=== PATIENT | female | born 1990 | race Caucasian/White ===

== ENCOUNTER 2019-08-09 09:24 | Outpatient (CLI) | payer SELFPAY ==
--- NOTE | 2019-08-09 | CT_ITS ---
WS: [id number] CT CHEST ANGIOGRAPHY WITH REFORMATS HISTORY: CHEST PAIN TECHNIQUE: Contiguous axial images are obtained through the chest during arterial injection of intrav enous contrast. Images are reconstructed to evaluate the pulmonary arteries. MIP imaging also reviewe d. All CT scans at [facility] use at least one of these dose optimization techniques: aut omated exposure control; mA and/or kV adjustment per patient size (includes targeted exams where dose is matched to clinical indication); or iterative reconstruction. CONTRAST: Omnipaque 350; 95 mL IV. DLP: 775.33 mGycm COMPARISON: Short of breath with chest pain. Adequate opacification of the pulmonary arteries. There are no filling defects or pulmonary embolism identified through the segmental branches. Normal pulmonary artery size. Normal aorta. Normal heart s ize. No pericardial or pleural effusions. There are scattered benign granulomata throughout both lung s. There are a few micronodules which are not calcified. No pneumonia. No adenopathy. Small hiatal hernia. No abnormality within the upper abdomen. No bone destruction. CT/CT angio chest PE protcl [id number] IMPRESSION: 1. No pulmonary embolism. 2. Prior granulomatous disease. 3. No pneumonia.
[2019-08-09] MEDS: iohexol 350 mg/mL 100 mL Btl IV (10:23)
== END 2019-08-09 09:25 | disposition home or self-care (01) ==
LOC: RADWPI 09:30
PROVIDERS: PCP Nurse Practitioner Family; Referring Provider Nurse Practitioner Family; Visit Provider Nurse Practitioner Family
DX: R07.9 Chest pain, unspecified
CPT/HCPCS: 71275; Q9967